=== PATIENT | male | born 1945 | race Caucasian/White ===

== ENCOUNTER 2019-05-08 11:35 | Day surgery (SDC) | payer BC ==
[2019-05-08] MEDS ORDERED: FENTAnyl 50 MCG/ML VIAL (13:47)
[2019-05-08] MEDS ORDERED: MIDAZOLAM 1 MG/ML 2 ML INJ ×2 (13:47→13:48)
== END 2019-05-08 14:44 | disposition home or self-care (01) ==
LOC: GIL 11:35
DX: Z12.11 Encounter for screening for malignant neoplasm of colon (principal); K57.90 Diverticulosis of intestine, part unspecified, without perforation or abscess without bleeding; I10 Essential (primary) hypertension; Z79.82 Long term (current) use of aspirin
CPT/HCPCS: 45378